=== PATIENT | female | born 1980 | race Caucasian/White ===

== ENCOUNTER 2016-11-10 16:44 | Emergency (ER) | payer OTHER ==
[2016-11-10] MEDS ORDERED: IBUPROFEN 400 MG TABLET. PO ONE (17:30)
--- NOTE | 2016-11-10 18:09 | PHYS DOC ---
Adult General Chief Complaint Chief Complaint: FOOT INJURY PAIN HPI HPI History 6-year-old female with a history of surgical treatment of a comminuted fracture deformity of the right ankle now presents complaining of right foot pain after a traumatic inversion injury yesterday. She denies persistent soreness midfoot with no deformity or swelling but mild tenderness in that area. No ecchymosis. No ankle pain and knee pain hip pain or other complaint Review of Systems Review of Systems Constitutional: Denies fever or chills [] Eyes: Denies change in visual acuity, redness, or eye pain [] HENT: Denies nasal congestion or sore throat [] Respiratory: Denies cough or shortness of breath [] Cardiovascular: No additional information not addressed in HPI [] GI: Denies abdominal pain, nausea, vomiting, bloody stools or diarrhea [] : Denies dysuria or hematuria [] Musculoskeletal: Denies back pain or joint pain [] Integument: Denies rash or skin lesions [] Neurologic: Denies headache, focal weakness or sensory changes [] Endocrine: Denies polyuria or polydipsia [] Current Medications Current Medications Current Medications Medications (Trade) Dose Ordered Sig/Harper Start Time Stop Time Status Last Admin Dose Admin Ibuprofen (Motrin) 800 mg 1X ONCE 11/10/16 17:30 11/10/16 17:31 DC Allergies Allergies Allergies Coded Allergies Type Severity Reaction Last Updated Verified No Known Drug Allergies 11/10/16 No Physical Exam Physical Exam Constitutional: Well developed, well nourished, no acute distress, non-toxic appearance. [] HENT: Normocephalic, atraumatic, bilateral external ears normal, oropharynx moist, no oral exudates, nose normal. [] Eyes EOMI, conjunctiva normal, no discharge. [] Neck: Normal range of motion, no tenderness, supple, no stridor. [] Cardiovascular:Heart rate regular rhythm, no murmur [] Lungs & Thorax: Symmetrical chest wall excursion is normal rest for a rate Abdomen: Normal-appearing abdomen Skin: Warm, dry, no erythema, no rash. [] Back: No tenderness, no CVA tenderness. [] Extremities: Mild tenderness right mid foot no bony tenderness. Right ankle with chronic bony deformity of enlargement baseline per patient since prior surgical treatment of severe fracture. Nontender knee and remainder of leg. No ecchymosis, no cyanosis, no clubbing, ROM intact, no edema. [] Neurologic: Alert and oriented X 3, normal motor function, normal sensory function, no focal deficits noted. [] Psychologic: Affect normal, judgement normal, mood normal. [] EKG EKG [] Radiology/Procedures Radiology/Procedures [] Course & Med Decision Making Course & Med Decision Making Pertinent Labs and Imaging studies reviewed. (See chart for details) Signs and symptoms consistent with mild sprain of right foot. Mild tenderness but no bony tenderness or deformity. X-ray negative for acute process in the foot. Nontender ankle but asymmetric is her chronic baseline. X-ray of the ankle with multiple surgical implants but no acute abnormality. Discussed with patient to wear a hard sole shoe. rest ice and elevate. She can take ibuprofen every 6 hours and follow up with her doctor in 2-3 days for reevaluation and referral to orthopedics or podiatry as needed. Patient aware to wear postop shoe for support and use crutches as needed to take weight off her foot if it is hurting her to bear weight. [] Dragon Disclaimer Dragon Disclaimer This chart was dictated in whole or in part using Voice Recognition software in a busy, high-work load, and often noisy Emergency Department environment. It may contain unintended and wholly unrecognized errors or omissions. Departure Departure: Referrals: NON,STAFF (PCP) CARLEEN ROSS MD Nov 10, 2016 18:09
--- NOTE | 2016-11-11 07:33 | RAD ---
Indication: Right foot pain, fall. Time of exam 1712 hours. 3 views of the right foot were obtained. There is soft tissue swelling noted at the level of the fifth MTP joint laterally. The metatarsals appear intact. The phalanges are intact. The midfoot is unremarkable. Extensive surgery to the ankle is noted. There are numerous screws and plates transfixing the distal tibia and tibiotalar joint. The visualized hardware appears intact. Impression: Chronic and postsurgical changes. No acute bony abnormality is detected.
--- NOTE | 2016-11-11 07:35 | RAD ---
Indication: Fall with right ankle pain Time of exam 1710 hours. Extensive postsurgical changes at the ankle are noted. There has been resection of the distal fibula. There is a lateral plate and numerous screws transfixing the distal tibia. There appears to be an ankle arthrodesis with numerous screws extending through the tibiotalar joint. The hardware appears to be intact. No acute fractures are seen. Impression: Postsurgical changes. No acute bony abnormality is detected.
== END 2016-11-10 18:35 | disposition home or self-care (01) ==
LOC: ER 16:44
DX: S93.601A Unspecified sprain of right foot, initial encounter (principal); X58.XXXA Exposure to other specified factors, initial encounter; Y93.89 Activity, other specified; Y99.8 Other external cause status; Y92.89 Other specified places as the place of occurrence of the external cause
CPT/HCPCS: 73610; 73630; 99284-25